=== PATIENT | female | born 1975 | race Caucasian/White ===

== ENCOUNTER 2017-07-13 13:12 | Emergency (ER) | payer OTHER ==
[~2017-07-13] VITALS: Ht 162.6 cm; Wt 74.8 kg
[~2017-07-13 13:12] MED LIST: ACCUNEB SO1.25 MG/1 INH; ALBUTEROL2.5 MG/31; AUGMENTIN 875875 M1 PO; DIFLUCAN150 MG PO; IBUPROFEN 800800 M1 PO; IBUPROFEN 800800 MG PO; PROMETHAZINE-D120 ML PO; PROVENTIL HFA6.7 G1 INH; VENTOLIN HFA 1818 GM INH
[2017-07-13 13:19] VITALS: BP 111/64
[2017-07-13] MEDS ORDERED: VENTOLIN HFA 1818 GM INH (13:24)
[2017-07-13] MEDS ORDERED: IBUPROFEN 800800 MG PO (13:29)
== END 2017-07-13 13:37 ==
LOC: M.ERS 13:12
DX: M54.30 Sciatica, unspecified side (principal); J45.909 Unspecified asthma, uncomplicated; G89.29 Other chronic pain; M54.5 Low back pain; F17.210 Nicotine dependence, cigarettes, uncomplicated; Z88.8 Allergy status to other drugs, medicaments and biological substances